=== PATIENT | female | born 1955 | race Caucasian/White ===

== ENCOUNTER → 2016-12-26 | Outpatient (CLI) | payer OTHER ==
[~2016-12-26] MED LIST: ALL DAY ALLERGY10 M3 PO; ASPIRIN EC81 M1 PO; ATIVAN0.5 M1 PO; CLARITIN10 M2 PO; COREG CR20 MG PO; DESYREL100 MG PO; HCTZ PO; LISINOPRIL30 MG PO; NORVASC PO; SIMVASTATIN20 MG PO
--- NOTE | ~2016-12-26 | TH ---
Unit #: [id number] #: [id number] Patient: JEANNIE DOUGLAS [id number] [address] [place], [place] [address] [id number] O MR#: [id number] NAME: JEANNIE DOUGLAS. : 1955 SEX: F STUDY DATE/TIME: 12/26/2016 UNIT: [facility] ROOM: STUDY DESCRIPTION: Stress nuclear Attending Physician: Jose Martinez M.D. Referring Physician: Jose Martinez M.D. Primary Care Physician: Jill Lewis M.D. CARDIOLOGY REPORT EXAM Stress nuclear and ECG. INDICATION Dyspnea, inability to exercise adequately. SUMMARY The patient was given Lexiscan intravenously while at rest as well as Tc-99m Cardiolite, 11.28 and 33.7 mCi, at rest and stress respectively. Appropriate views were obtained. FINDINGS The heart rate increased from 50 to 90 and blood pressure decreased 149/79 to 141/80. Post stress, the blood pressure increased to 163/93. There was no chest pain noted. The rest and stress ECG both were abnormal but no diagnostic for ischemia showing T wave inversion in V2 and V3 which did not change. Perfusion mages demonstrate normal perfusion throughout the myocardium both at rest and stress. There is no significant lung uptake, LV or RV enlargement. There is no significant patient noted during stress or rest. Summed stress score is zero. Gated perfusion wall motion analysis demonstrates normal wall motion throughout the myocardium with end-diastolic volume 72 mL, ejection fraction greater than 65%. IMPRESSION 1. Myocardial perfusion scan with Lexiscan. Stress shows no evidence of ischemia or infarction. 2. Normal wall motion with excellent ejection fraction. 3. Normal LV size. Dictated by... José Manuel Wesley M.D. MARTÍNEZ/salvador TD: 12/27/2016 06:48 JOB #: [id number] Unit #: [id number] #: [id number] Patient: JEANNIE DOUGLAS CARDIOLOGY REPORT Page 1 of 1 X José Manuel Wesley MD CARDIOLOGY REPORT
--- NOTE | ~2016-12-26 | ST ---
Unit #: [id number] #: [id number] Patient: JEANNIE DOUGLAS [id number] [address] [address] [id number] O MR#: [id number] NAME: JEANNIE DOUGLAS. : 1955 SEX: F STUDY DATE/TIME: 12/26/2016 UNIT: [facility] ROOM: STUDY DESCRIPTION: Stress ECG Attending Physician: Jose Martinez M.D. Referring Physician: Jose Martinez M.D. Primary Care Physician: Jill Lewis M.D. CARDIOLOGY REPORT EXAM Stress ECG. FINDINGS Result text under nuclear order number. Please see this order for result text. Dictated by... Daniela Kaminski/salvador TD: 12/27/2016 06:54 JOB #: [id number] CARDIOLOGY REPORT Page 1 of 1 X José Manuel Wesley MD CARDIOLOGY REPORT
== END | disposition home or self-care (01) ==
LOC: CNUC 08:25
DX: R07.9 Chest pain, unspecified (principal); R06.02 Shortness of breath; R94.31 Abnormal electrocardiogram [ECG] [EKG]
CPT/HCPCS: 78452; 93017; 93306; A9500; J2785